=== PATIENT | female | born 1940 | race Caucasian/White ===

== ENCOUNTER 2017-02-21 12:54 | Emergency (ER) | payer MEDICARE, OTHER ==
[2013-09-09 13:37] VITALS: BMI 23.5
[~2017-02-21 12:54] MED LIST: COREG6.25 MG PO; COZAAR50 MG PO; LIPITOR20 MG PO; MOBIC7.5 MG PO; NORVASC5 MG PO; PREMARIN1.25 MG PO; PROTONIX40 MG PO; RESTORIL15 MG PO
== END 2017-02-21 15:40 | disposition home or self-care (01) ==
LOC: D.ER 12:54
DX: K22.4 Dyskinesia of esophagus (principal); R13.10 Dysphagia, unspecified

== ENCOUNTER → 2017-03-21 15:19 | Outpatient (CLI) | payer MEDICARE, OTHER ==
[2013-09-09 13:37] VITALS: BMI 23.5
[2017-03-21 15:48] LABS: BASOPHILS 0.2 % (0-2); HEMATOCRIT 32.2 % (36.0-48.0); HEMOGLOBIN 10.4 g/dL (12-16); IMMATURE GRANULOCYTES 0.2 % (0-5); LYMPHOCYTES 27.1 % (15-50); MCH 27.5 pg (26.0-34.0); MCHC 32.3 g/dL (31.0-37.0); MCV 85.2 fL (80.0-100.0); MEAN PLATELET VOLUME 9.2 fL (7.4-10.4); MONOCYTES 8.8 % (2-11); NEUTROPHILS 62.7 % (40-80); PLATELET COUNT 286 10x3/uL (130-400); RBC 3.78 10x6/uL (4.00-5.40); WBC 9.4 10x3/uL (4.8-10.8)
== END | disposition home or self-care (01) ==
LOC: D.LAB 15:15 → D.CT 15:30
PROVIDERS: Internal Medicine Gastroenterology
DX: R10.32 Left lower quadrant pain (principal); K57.92 Diverticulitis of intestine, part unspecified, without perforation or abscess without bleeding; R19.4 Change in bowel habit

== ENCOUNTER → 2017-11-08 07:59 | Outpatient (CLI) | payer MEDICARE, OTHER ==
[2013-09-09 13:37] VITALS: BMI 23.5
== END | disposition home or self-care (01) ==
LOC: D.CT 07:59
DX: R10.32 Left lower quadrant pain (principal); Z87.19 Personal history of other diseases of the digestive system